=== PATIENT | male | born 1945 | race Two or more races ===

== ENCOUNTER 2022-01-31 08:45 | Inpatient (IN) | payer OTHER ==
[~2022-01-31] VITALS: Ht 172.7 cm; Wt 96.6 kg
[2022-01-31] MEDS ORDERED: ATACAND32 MG PO (11:34)
[2022-01-31] MEDS ORDERED: AMLODIPINE-OLM1 EAC2 PO (11:35)
[2022-01-31] MEDS ORDERED: COZAAR100 MG PO (11:35)
[2022-01-31] MEDS ORDERED: TOPROL XL50 M1 PO (11:35)
[2022-01-31] MEDS ORDERED: ZYLOPRIM100 M1 PO (11:36)
[2022-01-31] MEDS ORDERED: PRAVASTATIN SOD40 MG PO (11:36)
[2022-01-31] MEDS ORDERED: DOXAZOSIN PO (11:37)
[2022-02-04] MEDS ORDERED: DOXAZOSIN MESYLA4 MG (08:10)
[2022-02-04] MEDS ORDERED: AMLODIPINE BESYL5 MG (08:10)
[2022-02-04] MEDS ORDERED: MELOXICAM15 MG (08:10)
[2022-02-04] MEDS ORDERED: TAMSULOSIN HCL0.4 MG (08:11)
[2022-02-04] MEDS ORDERED: HYDROCHLOROTH12.5 MG (08:11)
[2022-02-07] MEDS ORDERED: CIPRO500 MG PO (08:43)
[2022-02-07] MEDS ORDERED: PERCOCET 5-3251 EACH PO (08:43)
[2022-02-07] MEDS ORDERED: ELIQUIS2.5 MG PO (08:43)
== END 2022-02-07 15:35 | DRG 470 ==
LOC: O/R 02-04 05:00 → SURH 02-04 05:00 → SURG 02-04 08:45 → SURH 02-04 10:26
PROVIDERS: ADMIT Orthopaedic Surgery; ATTEND Orthopaedic Surgery
PROC: 0SRD0J9 Replacement of Left Knee Joint with Synthetic Substitute, Cemented, Open Approach (ICD-10-PCS; principal; 2022-02-04 10:15)
DX: M17.12 Unilateral primary osteoarthritis, left knee (principal); D62 Acute posthemorrhagic anemia; M22.12 Recurrent subluxation of patella, left knee; I10 Essential (primary) hypertension; M10.9 Gout, unspecified; E66.9 Obesity, unspecified

== ENCOUNTER 2024-06-28 09:00 | Inpatient (IN) | payer OTHER ==
[~2024-06-28] VITALS: Ht 172.7 cm; Wt 97.5 kg
[~2024-06-28 09:00] MED LIST: AMLODIPINE BESYL5 MG; AMLODIPINE-OLM1 EAC2 PO; ATACAND32 MG PO; CIPRO500 MG PO; COZAAR100 MG PO; DOXAZOSIN MESYLA4 MG; DOXAZOSIN PO; ELIQUIS2.5 MG PO; HYDROCHLOROTH12.5 MG; MELOXICAM15 MG; PERCOCET 5-3251 EACH PO; PRAVASTATIN SOD40 MG PO; TAMSULOSIN HCL0.4 MG; TOPROL XL50 M1 PO; ZYLOPRIM100 M1 PO
[2024-06-28 09:51] VITALS: BP 156/80
[2024-06-28 10:15] LABS: HEMATOCRIT 41.5 % (39.0-48.0); HEMOGLOBIN 13.9 g/dL (13-16.00); INR 1.05; MEAN CELL VOLUME 103.8 fL (80.0-100.00); MEAN CORPUSCULAR HEMOGLOBIN 34.8 pg (27.00-32.0); MEAN CORPUSCULAR HGB CONC 33.5 g/dl (32.0-36.0); PARTIAL THROMBOPLASTIN TIME 24.8 SECONDS (22.0-34.0); PLATELET COUNT 248 K/uL (150-450); PROTHROMBIN TIME 11.4 SECONDS (9.0-11.5); RED CELL DISTRIBUTION WIDTH 13.9 % (11.5-14.5)
[2024-06-28 10:34] LABS: ALBUMIN 4.4 gm/dL (3.4-5.0); BILIRUBIN TOTAL 0.75 mg/dL (0.3-1.2); CALCIUM 9.8 mg/dL (8.5-10.1); CREATININE SERUM 1.15 mg/dL (0.70-1.30); GFR 61.5; GLOBULINA 3.8 G/DL (2.4-3.5); POTASSIUM 4.11 mEq/L (3.5-5.1); TOTAL PROTEIN 8.2 gm/dL (6.4-8.2)
[2024-06-28 11:00] LABS: PH,URINE 5.5 (5.0-8.0); URINE APPEARANCE Clear; URINE BILIRRUBIN Negative (NEGATIVE); URINE BLOOD Negative; URINE COLOR Yellow; URINE GLUCOSE Negative (NEGATIVE); URINE KETONE Negative (NEGATIVE); URINE LEUKOCYTE Negative; URINE NITRATE Negative; URINE PROTEIN Negative (NEGATIVE); URINE UROBILINOGEN 0.2 E.U./dl
[2024-06-28 11:06] LABS: URINE BACTERIA 7.3 uL (0.0-1933); URINE RBC 2.7 uL (0.0-20.8)
[2024-06-28 11:42] LABS: URINE WBC 1.1 uL (0.0-23.2)
[2024-06-28 12:14] LABS: RH NEGATIVE
[2024-07-19] MEDS ORDERED: VANCOMYCIN HCL 1,000 MG VIAL IV SCH (05:00)
[2024-07-19] MEDS ORDERED: VANCOMYCIN HCL 1,000 MG VIAL ONE ×2 (07:13→07:38)
[2024-07-19] MEDS ORDERED: ISOPROPYL ALCOHOL 30 ML OUNCE TOP ONE (07:13)
[2024-07-19] MEDS ORDERED: LIDOCAINE HCL 1%/EPINEPHRINE 20ML VIAL IJ ONE (07:13)
[2024-07-19] MEDS ORDERED: KETOROLAC TROMETHAMINE 60 MG VIAL IM ONE (07:13)
[2024-07-19] MEDS ORDERED: BUPIVACAINE HCL/MPF 0.5% 30ML VIAL ONE (07:13)
[2024-07-19] MEDS ORDERED: POVIDONE-IODINE 118 ML BOTT TOP ONE (07:49)
[2024-07-19] MEDS ORDERED: TRANEXAMIC ACID 100MG/1ML (1000MG) AMPUL IV ONE (08:10)
[2024-07-19] MEDS ORDERED: MORPHINE SULFATE 4 MG/ML VIAL IV ONE (09:00)
[2024-07-19] MEDS ORDERED: CELECOXIB 200 MG CAPSULE PO SCH (09:00)
[2024-07-19] MEDS ORDERED: OxyCODONE HCL 5 MG TABLET (ROXICODONE) PO PRN (09:00)
[2024-07-19] MEDS ORDERED: GABAPENTIN 300 MG CAPSULE PO SCH (09:00)
[2024-07-19] MEDS ORDERED: SODIUM CHLORIDE 0.45 % 1,000 ML IV SCH (09:00)
[2024-07-19] MEDS ORDERED: ONDANSETRON HCL 2 MG/ML VIAL IV PRN (09:00)
[2024-07-19] MEDS ORDERED: VANCOMYCIN HCL 1,000 MG in 0.9 % SODIUM CHLORIDE 250 ML IV SCH (09:00)
[2024-07-19] MEDS ORDERED: MORPHINE SULFATE 4 MG/ML CARTRIDGE IV PRN (09:00)
[2024-07-19] MEDS ORDERED: ACETAMINOPHEN 500 MG GEL..CAP PO SCH (12:00)
[2024-07-19] MEDS ORDERED: hydrALAZINE HCL 20 MG VIAL IV PRN (13:45)
[2024-07-19] MEDS ORDERED: GABAPENTIN 300 MG CAPSULE PO ONE (15:41)
[2024-07-19] MEDS ORDERED: APIXABAN 2.5 MG TABLET PO SCH (17:00)
[2024-07-19] MEDS ORDERED: PRAVASTATIN 40 MG PO SCH (17:00)
[2024-07-19 18:27] VITALS: BP 160/79; O2SAT 99
[2024-07-19] MEDS ORDERED: FAMOTIDINE/PF 20 MG in 0.9 % SODIUM CHLORIDE 8 ML IV PUSH SCH (21:00)
[2024-07-20 00:50] VITALS: BP 135/80; O2SAT 99
[2024-07-20 08:00] VITALS: BP 144/69; O2SAT 95
[2024-07-20] MEDS ORDERED: PERCOCET 5-3251 EACH PO (08:08)
[2024-07-20] MEDS ORDERED: CIPRO500 MG PO (08:08)
[2024-07-20] MEDS ORDERED: ELIQUIS2.5 MG PO (08:08)
[2024-07-20 08:15] LABS: HEMATOCRIT 36.7 % (39.0-48.0); HEMOGLOBIN 12.6 g/dL (13-16.00); MEAN CELL VOLUME 103.3 fL (80.0-100.00); MEAN CORPUSCULAR HEMOGLOBIN 35.5 pg (27.00-32.0); MEAN CORPUSCULAR HGB CONC 34.4 g/dl (32.0-36.0); PLATELET COUNT 187 K/uL (150-450); RED BLOOD COUNT 3.56 M/uL (4.00-6.00); RED CELL DISTRIBUTION WIDTH 13.5 % (11.5-14.5)
[2024-07-20] MEDS ORDERED: HYDROCHLOROTHIAZIDE 12.5 MG CAPSULE PO SCH (09:00)
[2024-07-20] MEDS ORDERED: SENNOSIDES 1 TAB TABLET PO SCH (09:00)
[2024-07-20] MEDS ORDERED: LOSARTAN POTASSIUM 100 MG TABLET PO SCH (09:00)
[2024-07-20] MEDS ORDERED: IRON FUM,PS/FOLIC ACID/VITC/B3 1 CAP CAPSULE PO SCH (09:00)
[2024-07-20] MEDS ORDERED: DOXAZOSIN MESYLATE 4 MG TABLET PO SCH (09:00)
[2024-07-20] MEDS ORDERED: ALLOPURINOL 100 MG TABLET PO SCH (09:00)
[2024-07-20] MEDS ORDERED: AMLODIPINE BESYLATE 5 MG TABLET PO SCH (09:00)
[2024-07-20] MEDS ORDERED: METOPROLOL SUCCINATE 50 MG TAB.SR.24H PO SCH (09:00)
[2024-07-20] MEDS ORDERED: VANCOMYCIN HCL 1,000 MG VIAL IV NR (11:00)
[2024-07-20] MEDS ORDERED: Cyanocobalamin/Mecobalamin 1 TAB.SL SL SCH (12:36)
[2024-07-20 16:00] VITALS: BP 124/64; O2SAT 95
[2024-07-20] MEDS ORDERED: VITAMIN B COMPLEX 1 EACH PO SCH (17:00)
[2024-07-20] MEDS ORDERED: VANCOMYCIN HCL 1,000 MG VIAL ONE (20:55)
[2024-07-20] MEDS ORDERED: VANCOMYCIN HCL 1,000 MG VIAL IV SCH (21:00)
[2024-07-20 23:42] VITALS: BP 128/69; O2SAT 96
[2024-07-21] MEDS ORDERED: VANCOMYCIN HCL 1,000 MG VIAL ONE ×2 (06:50→14:40)
[2024-07-21 08:00] VITALS: BP 140/66; O2SAT 95
[2024-07-21 08:22] LABS: HEMATOCRIT 31.1 % (39.0-48.0); HEMOGLOBIN 10.7 g/dL (13-16.00); MEAN CELL VOLUME 102.3 fL (80.0-100.00); MEAN CORPUSCULAR HEMOGLOBIN 35.3 pg (27.00-32.0); MEAN CORPUSCULAR HGB CONC 34.5 g/dl (32.0-36.0); PLATELET COUNT 166 K/uL (150-450); RED BLOOD COUNT 3.04 M/uL (4.00-6.00); RED CELL DISTRIBUTION WIDTH 13.4 % (11.5-14.5)
[2024-07-21] MEDS ORDERED: SOD FERRIC GLUC COMPLX/SUCROSE 62.5 MG/5 ML AMPUL IV SCH (12:00)
[2024-07-21 16:00] VITALS: BP 145/74; O2SAT 96
[2024-07-22 00:16] VITALS: BP 136/72; O2SAT 100
[2024-07-22] MEDS ORDERED: VANCOMYCIN HCL 1,000 MG VIAL ONE (06:36)
[2024-07-22 08:32] VITALS: BP 156/63; O2SAT 98
== END 2024-07-22 12:14 | disposition home or self-care (01) | DRG 470 ==
LOC: SURG 07-05 09:00 → O/R 07-19 05:45 → SURH 07-19 15:24
PROVIDERS: ADMIT Orthopaedic Surgery; ATTEND Orthopaedic Surgery
PROC: 0SRC0J9 Replacement of Right Knee Joint with Synthetic Substitute, Cemented, Open Approach (ICD-10-PCS; principal; 2024-07-19 21:45)
DX: M17.11 Unilateral primary osteoarthritis, right knee (principal); M22.11 Recurrent subluxation of patella, right knee; M06.9 Rheumatoid arthritis, unspecified; E66.01 Morbid (severe) obesity due to excess calories

== ENCOUNTER 2024-06-29 09:27 | Outpatient (CLI) | payer OTHER | END 2024-06-29 09:30 | disposition home or self-care (01) | LOC: NUCLEAR 09:27 | PROVIDERS: ATTEND Internal Medicine | DX: I51.7 Cardiomegaly (principal) ==